=== PATIENT | male | born 1950 | race Asian ===

== ENCOUNTER 2018-04-26 10:04 | Day surgery (SDC) | payer MEDICARE, OTHER ==
[~2018-04-26 10:04] MED LIST: PROPOFOL 200 MG INJ
[2018-04-26] MEDS ORDERED: PROPOFOL 20 ML (11:25)
[2018-04-26] MEDS ORDERED: ONDANSETRON 4 MG INJ IV (11:30)
== END 2018-04-26 14:11 | disposition home or self-care (01) ==
LOC: GIL 10:04
DX: Z12.11 Encounter for screening for malignant neoplasm of colon (principal); D12.2 Benign neoplasm of ascending colon; D12.3 Benign neoplasm of transverse colon; D12.5 Benign neoplasm of sigmoid colon; I10 Essential (primary) hypertension; E78.5 Hyperlipidemia, unspecified
CPT/HCPCS: 45380; 88305